=== PATIENT | female | born 1925 | race Hispanic/Latino ===

== ENCOUNTER 2016-08-13 20:29 | Emergency (ER) | payer MEDICARE, OTHER ==
[2016-08-13 20:30] VITALS: BMI 21.4
[2016-08-13 20:52] VITALS: BP 156/63; PULSE 70; RESP 18; TEMP 98.3; O2SAT 97
[2016-08-13 21:59] LABS: BASO % 1.1 % (0.0-2.0); EOS % 0.9 % (0.0-4.0); HEMATOCRIT 40.9 % (34.0-47.0); LYMPH # 0.7 K/uL (1.0-4.3); LYMPH % 21.9 % (20.0-40.0); MEAN CELL VOLUME 89.7 fl (81.0-99.0); MEAN CORPUSCULAR HEMOGLOBIN 29.5 pg (27.0-31.0); MEAN CORPUSCULAR HGB CONC 32.9 g/dL (33.0-37.0); MEAN PLATELET VOLUME 9.7 fl (7.2-11.7); MONO # 0.4 K/uL (0.0-0.8); MONO % 12.5 % (0.0-10.0); NEUT % 63.6 % (50.0-75.0); NRBC % 0.1 % (0.0-0.0); RED CELL DISTRIBUTION WIDTH 14.7 % (11.5-14.5); WHITE BLOOD COUNT 3.1 K/uL (4.8-10.8)
[2016-08-13 22:00] LABS: VENOUS BLOOD GAS BASE EXCESS 5.9 mmol/L (0.0-2.0); VENOUS BLOOD GAS PCO2 57 mmHg (40-60); VENOUS BLOOD PH 7.37 (7.32-7.43)
--- NOTE | 2016-08-13 22:06 | ED PDOC ---
HPI: CCC, URI, Sore Throat Time Seen by Provider: 08/13/16 20:59 Chief Complaint (Nursing): Cough, Cold, Congestion Chief Complaint (Provider): sore throat History Per: Patient, Family History/Exam Limitations: no limitations Onset/Duration Of Symptoms: Days (2), Gradual, Persistent Associated Symptoms: Sore Throat, Cough, Sinus Drainage. denies: Fever, Chills , Sputum, Nasal Congestion, Vomiting, Diarrhea Severity: Severe Additional Complaint(s): Pt with progressively sever throat pain for 2 days. Constant. Worse if swallow and hasn't eaten all day due to pain. Taking Tylenol with minimal relief. +sick contacts at home: family members also with URIs. Past Medical History Reviewed: Historical Data, Nursing Documentation, Vital Signs Vital Signs: Last Vital Signs Temp 98.3 F 08/13/16 20:49 Pulse 70 08/13/16 20:49 Resp 18 08/13/16 20:49 BP 156/63 H 08/13/16 20:49 Pulse Ox 97 08/14/16 00:29 - Medical History PMH: Anxiety, Back Problems, Depression, Fractures, Osteoporosis Denies: Arthritis, CHF, COPD, HTN, Hypercholesterolemia, Hypothyroidism, Chronic Kidney Disease, Rheumatoid Arthritis - Surgical History Other surgeries: LEFT shoulder - Family History Family History: States: Unknown Family Hx - Social History Current smoker - smoking cessation education provided: No - Home Medications Home Medications: Ambulatory Orders Medication Instructions Recorded Perphenazine/Amitriptyline 1 tab PO DAILY 09/30/15 Gabapentin [Neurontin] 100 mg PO TID 10/14/15 Albuterol 0.5% [Albuterol 0.5% 2.5 mg IH Q4 #15 neb 03/24/16 Inhal Regi (2.5 mg/0.5 ml) UD] Amoxicillin 500 mg PO BID #14 tablet 03/24/16 Mask, Face [Nebulizer Aerosol Mask 1 dev XX PRN PRN #1 dev 03/24/16 Pediatric] Nebulizer [Aeroeclipse II] 1 each MC DAILY #1 each 03/24/16 fentaNYL 50 mcg/hr [Duragesic 1 patch TD Q72H 03/24/16 Patch 50 mcg/hr] predniSONE [predniSONE Tab] 20 mg PO BID #8 tab 03/24/16 Amoxicillin/Clavulanate [Augmentin 1 tab PO BID #14 tab 08/14/16 875 MG-125 MG] Ibuprofen [Motrin Tab] 600 mg PO Q8 PRN #30 tab 08/14/16 - Allergies Allergies/Adverse Reactions: Allergies Allergy/AdvReac Type Severity Reaction Status Date / Time No Known Allergies Allergy Verified 12/20/15 12:59 Review of Systems ROS Statement: Except As Marked, All Systems Reviewed And Found Negative (and as per HPI) Constitutional: Negative for: Fever, Chills ENT: Positive for: Nose Discharge, Throat Pain. Negative for: Nose Congestion, Throat Swelling Cardiovascular: Negative for: Chest Pain Respiratory: Negative for: Sputum Physical Exam - Reviewed Nursing Documentation Reviewed: Yes Vital Signs Reviewed: Yes - Physical Exam Appears: Positive for: Non-toxic, Uncomfortable, In Acute Distress Head Exam: Positive for: ATRAUMATIC, NORMOCEPHALIC Skin: Positive for: Warm, Dry Eye Exam: Positive for: EOMI, PERRL ENT: Positive for: Pharynx Is (clear), Pharyngeal Erythema. Negative for: Tonsillar Exudate, Tonsillar Swelling Neck: Positive for: Painless ROM, Supple Cardiovascular/Chest: Positive for: Regular Rate, Rhythm, Chest Non Tender. Negative for: Murmur Respiratory: Positive for: Normal Breath Sounds. Negative for: Rales, Rhonchi, Wheezing Gastrointestinal/Abdominal: Positive for: Bowel Sounds, Soft. Negative for: Tenderness, Distended, Guarding Back: Positive for: Normal Inspection. Negative for: Muscle Spasm Extremity: Positive for: Normal ROM, Pedal Edema (reported as chronic) Lymphatic: Negative for: Adenopathy Neurologic/Psych: Positive for: Alert. Negative for: Motor/Sensory Deficits - Laboratory Results Result Diagrams: 08/13/16 21:49 08/13/16 21:49 - ECG O2 Sat by Pulse Oximetry: 97 - Progress ED Course And Treament: EXAM: CT Neck With Intravenous Contrast CLINICAL HISTORY: 89 years old, female; Pain; Throat pain; Additional info: Severe throat pain difficulty swallowing R/O absce TECHNIQUE: Axial computed tomography images of the neck with intravenous contrast. This CT exam was performed using one or more of the following dose reduction techniques: automated exposure control, adjustment of the mA and/or kV according to patient size, and/or use of iterative reconstruction technique. Coronal and sagittal reformatted images were created and reviewed. CONTRAST: 90 mL of [id number] administered intravenously. EXAM DATE/TIME: 08/13/2016 9:24 PM COMPARISON: No relevant prior studies available. FINDINGS: Left shoulder prosthesis. Tonsillar edema without abscess formation. The airway is patent. A normal epiglottis is identified. No abnormalities of the esophagus identified however evaluation is limited on this exam. Scarring/atelectasis in the lung apices. Degenerative changes in the cervical spine. The cervical vertebrae are well aligned and the vertebral body height is well-maintained. Disposition - Clinical Impression Clinical Impression: Pharyngitis Counseled Patient/Family Regarding: Studies Performed, Diagnosis, Need For Followup, Rx Given - Disposition Referrals: Reji Bustos MD [Family Provider] - 08/14/16 Disposition: Routine/Home Disposition Time: 00:30 Condition: STABLE Prescriptions: Amoxicillin/Clavulanate [Augmentin 875 MG-125 MG] 1 tab PO BID #14 tab Ibuprofen [Motrin Tab] 600 mg PO Q8 PRN #30 tab PRN Reason: Pain, Moderate (4-7) Instructions: Pharyngitis (ED)
[2016-08-13 22:10] LABS: ALB/GLOB RATIO 1.3 (1.0-2.1); ALKALINE PHOSPHATASE 85 U/L (38-126); ALT/SGPT 23 U/L (9-52); AST/SGOT 22 U/L (14-36); BILIRUBIN,TOTAL 0.6 mg/dl (0.2-1.3); BLOOD UREA NITROGEN 20 mg/dl (7-17); CARBON DIOXIDE 29 mmol/L (22-30); CHLORIDE 99 mmol/L (98-107); GFR AFRICAN-AMERICAN > 60; GLUCOSE,RANDOM 98 mg/dL (65-105); POTASSIUM 4.4 MMOL/L (3.6-5.0); SODIUM 136 mmol/l (132-148); TOTAL PROTEIN 6.6 G/DL (6.3-8.2)
[2016-08-13] MEDS ORDERED: Sodium Chloride 0.9% 50 ML IV ONE (23:16)
[2016-08-13] MEDS ORDERED: Iohexol 300 100 ML IJ ONE (23:16)
--- NOTE | 2016-08-14 00:21 | CT ---
EXAM: CT Neck With Intravenous Contrast CLINICAL HISTORY: 89 years old, female; Pain; Throat pain; Additional info: Severe throat pain difficulty swallowing R/O absce TECHNIQUE: Axial computed tomography images of the neck with intravenous contrast. This CT exam was performed using one or more of the following dose reduction techniques: automated exposure control, adjustment of the mA and/or kV according to patient size, and/or use of iterative reconstruction technique. Coronal and sagittal reformatted images were created and reviewed. CONTRAST: 90 mL of [id number] administered intravenously. EXAM DATE/TIME: 08/13/2016 9:24 PM COMPARISON: No relevant prior studies available. FINDINGS: Left shoulder prosthesis. Tonsillar edema without abscess formation. The airway is patent. A normal epiglottis is identified. No abnormalities of the esophagus identified however evaluation is limited on this exam. Scarring/atelectasis in the lung apices. Degenerative changes in the cervical spine. The cervical vertebrae are well aligned and the vertebral body height is well-maintained. No vascular occlusion. IMPRESSION: Mild tonsillar edema.
--- NOTE | 2016-08-14 10:05 | RAD ---
HISTORY: cough COMPARISON: 03/24/2016 TECHNIQUE: Chest PA and lateral FINDINGS: LUNGS: Hazy opacity in the right paratracheal region has remained essentially unchanged. PLEURA: Possible small right-sided pleural effusion. Biapical pleural parenchymal thickening noted. CARDIOVASCULAR: Enlarged cardiomediastinal silhouette. OSSEOUS STRUCTURES: The osseous structures demonstrate degenerative changes. Saturated thoracic kyphosis. Left shoulder replacement. Extensive degenerative changes involving the right shoulder. VISUALIZED UPPER ABDOMEN: Upper abdomen is suboptimally evaluated. OTHER FINDINGS: None. IMPRESSION: Findings as above.
--- NOTE | 2016-08-17 09:34 | CARD ---
APPROVED REPORT EKG Measurement Heart [id number] <Conclusion> Normal sinus rhythm Normal ECG
== END 2016-08-14 07:20 | disposition home or self-care (01) ==
LOC: H.ER 20:29
DX: J02.9 Acute pharyngitis, unspecified (principal); R05 Cough; R07.0 Pain in throat; F32.9 Major depressive disorder, single episode, unspecified; F41.9 Anxiety disorder, unspecified; M81.0 Age-related osteoporosis without current pathological fracture; R13.10 Dysphagia, unspecified
CPT/HCPCS: 70491; 71020; 80053; 82803; 85025; 87040; 87070; 87430; 96374; 99281; J1885; Q9967

== ENCOUNTER 2016-08-31 10:45 | Observation (INO) | payer MEDICARE ==
[2016-08-31 10:50] VITALS: BMI 19.7
--- NOTE | 2016-08-31 12:15 | US ---
PROCEDURE: Right lower extremity venous duplex Doppler. HISTORY: leg pain COMPARISON: None available. TECHNIQUE: Common femoral, superficial femoral, popliteal and posterior tibial veins were evaluated. Flow was assessed with color Doppler, compressibility, assessment of phasic flow and augmentation response. FINDINGS: COMMON FEMORAL VEIN: Unremarkable. SUPERFICIAL FEMORAL VEIN: Unremarkable. POPLITEAL VEIN: Unremarkable. POSTERIOR TIBIAL VEIN: Unremarkable. OTHER FINDINGS: None. IMPRESSION: No evidence of deep venous thrombosis in the right lower extremity.
--- NOTE | 2016-08-31 12:37 | ED PDOC ---
HPI: General Adult Time Seen by Provider: 08/31/16 11:30 Chief Complaint (Nursing): Back Pain Chief Complaint (Provider): BACK PAIN History Per: Patient, Family (89 Y/O FEMALE H/O VERTEBRAL FX WITH BACK PAIN X 2 YEARS S/P FALL AT THAT TIME HERE WITH PERSISTENT PAIN AND SCIATICA RIGHT LEG. PATIENT IS ON FENTANYL PATCH AND HAS BEEN GIVEN ALLEVE TWICE A DAY X 1 WEEK WITHOUT RELIEF. FAMILY SPOKE WITH DR. MORENO AND WAS SENT TO ED FOR EVALUATION.) Past Medical History Reviewed: Historical Data, Nursing Documentation, Vital Signs Vital Signs: Last Vital Signs Temp 98.2 F 09/01/16 16:13 Pulse 73 09/01/16 16:13 Resp 20 09/01/16 16:13 BP 138/68 09/01/16 16:13 Pulse Ox 94 L 09/01/16 16:13 - Medical History PMH: Anxiety, Back Problems, Depression, Fractures, Osteoporosis Denies: Arthritis, CHF, COPD, HTN, Hypercholesterolemia, Hypothyroidism, Chronic Kidney Disease, Rheumatoid Arthritis - Family History Family History: States: Unknown Family Hx - Home Medications Home Medications: Ambulatory Orders Medication Instructions Recorded Perphenazine/Amitriptyline 1 tab PO DAILY 09/30/15 Gabapentin [Neurontin] 100 mg PO TID 10/14/15 fentaNYL 50 mcg/hr [Duragesic 1 patch TD Q72H 03/24/16 Patch 50 mcg/hr] Ibuprofen [Motrin Tab] 600 mg PO Q8 PRN #30 tab 08/14/16 Gabapentin [Neurontin] 200 mg PO BID cap 09/01/16 Ibuprofen [Motrin Tab] 600 mg PO Q8 PRN tab 09/01/16 oxyCODONE/Acetaminophen [Percocet 1 tab PO Q4 PRN tab 09/01/16 5/325 mg Tab] - Allergies Allergies/Adverse Reactions: Allergies Allergy/AdvReac Type Severity Reaction Status Date / Time No Known Allergies Allergy Verified 08/31/16 11:01 Review of Systems ROS Statement: Except As Marked, All Systems Reviewed And Found Negative Musculoskeletal: Positive for: Back Pain, Leg Pain Physical Exam - Reviewed Nursing Documentation Reviewed: Yes Vital Signs Reviewed: Yes - Physical Exam Appears: Positive for: Well, Non-toxic, No Acute Distress Head Exam: Positive for: ATRAUMATIC, NORMAL INSPECTION, NORMOCEPHALIC Skin: Positive for: Normal Color, Warm, DRY Eye Exam: Positive for: EOMI, Normal appearance, PERRL ENT: Positive for: Normal ENT Inspection Neck: Positive for: Normal, Painless ROM Cardiovascular/Chest: Positive for: Regular Rate, Rhythm Respiratory: Positive for: CNT, Normal Breath Sounds Gastrointestinal/Abdominal: Positive for: Normal Exam, Bowel Sounds, Soft Back: Positive for: Normal Inspection, Other (MINIMAL PARALUMBAR TENDERNESS) Extremity: Positive for: Normal ROM, Tenderness (RIGHT CALF TENDERNESS/ PAIN WITH LIFTING LEG.) Neurologic/Psych: Positive for: Alert, Oriented - Laboratory Results Result Diagrams: 08/31/16 13:08 08/31/16 13:08 - ECG O2 Sat by Pulse Oximetry: 96 - Progress ED Course And Treament: D/W DR. MORENO. WILL CONSULT PAIN MANAGEMENT. WILL XRY L SPINE FOR EVALUATION OF NEW FX. DUPLEX RIGHT LEG: NEG FOR DVT D/W DR. WALSH. XRY OF L/S: PENDING RADIOLOGY REVIEW. Disposition - Clinical Impression Clinical Impression: Back pain, Chronic back pain, Intractable back pain - Patient ED Disposition Is Patient to be Admitted: Yes - Disposition Disposition Time: 12:21 Condition: STABLE - Pt Status Changed To: Hospital Disposition Of: Observation
--- NOTE | 2016-08-31 13:22 | CP.PCM.CON ---
History of Present Illness - History of Present Illness History of Present Illness: 89 yo woman w/ acute on chronic lower back pain is admitted for intractable pain. Patient had L1, L2 kyphoplasty in 10/27 for compression fracture. She had pain in the right lower back that was effectively treated with the procedure. Her pain has mostly been controlled on Duragesic and Neurontin until recently. She denies any trauma or falls this time, but developed increased lower back pain along with new onset right leg radiating pain. She denies incontinence or saddle anesthesia or pain in the other leg. At home, she denies significant side effects to Duragesic 50mcg and Neurontin 100mg q8h. She takes Aleve as well. This particular regimen hasn't been working since the start of the new pain. Past Patient History - Past Medical History & Family History Past Medical History?: Yes - Past Social History Smoking Status: Never Smoked - CARDIAC Hx Congestive Heart Failure: No Hx Hypercholesterolemia: No Hx Hypertension: No - PULMONARY Hx Chronic Obstructive Pulmonary Disease (COPD): No - NEUROLOGICAL Hx Neurological Disorder: No HX Cerebrovascular Accident: No - HEENT Other/Comment: Uses reading eyeglasses - RENAL Hx Chronic Kidney Disease: No - ENDOCRINE/METABOLIC Hx Hypothyroidism: No - HEMATOLOGICAL/ONCOLOGICAL Hx Blood Disorders: No - INTEGUMENTARY Hx Dermatological Problems: No - MUSCULOSKELETAL/RHEUMATOLOGICAL Hx Arthritis: No Hx Fractures: Yes Hx Osteoporosis: Yes Hx Rheumatoid Arthritis: No - GASTROINTESTINAL Hx Gastrointestinal Disorders: No - GENITOURINARY/GYNECOLOGICAL Hx Genitourinary Disorders: No - PSYCHIATRIC Hx Anxiety: Yes Hx Depression: Yes - SURGICAL HISTORY Hx Hysterectomy: Yes - ANESTHESIA Hx Anesthesia: No Hx Anesthesia Reactions: No Hx Malignant Hyperthermia: No Meds Allergies/Adverse Reactions: Allergies Allergy/AdvReac Type Severity Reaction Status Date / Time No Known Allergies Allergy Verified 08/31/16 11:01 Physical Exam - Back Exam Back exam: paraspinal tenderness, vertebral tenderness - Neurological Exam Additional comments: Positive straight leg raise on the right. Results - Vital Signs Recent Vital Signs: Last Vital Signs Temp 98 F 08/31/16 11:01 Pulse 74 08/31/16 11:01 Resp 16 08/31/16 11:01 BP 150/68 08/31/16 11:01 Pulse Ox 96 08/31/16 12:39 Assessment & Plan (1) Chronic back pain Assessment and Plan: 89 w/ old compression fracture, and lumbar spondylosis. She has new pain, etiology of which is unclear. - continue Duragesic 50mcg/hr - increase Neurontin 100mg q8h to 200mg q12h - lumbar MRI to look for new pathologies explaining current pain - trial of Percocet PRN for breakthrough pain Status: Acute
[2016-08-31] MEDS ORDERED: Oxycodone/Acetaminophen 5/325 mg Tab PO PRN (13:27)
[2016-08-31 13:45] LABS: BASO % 0.7 % (0.0-2.0); EOS # 0.1 K/uL (0.0-0.7); EOS % 1.1 % (0.0-4.0); HEMATOCRIT 38.3 % (34.0-47.0); LYMPH # 1.1 K/uL (1.0-4.3); LYMPH % 14.5 % (20.0-40.0); MEAN CELL VOLUME 90.1 fl (81.0-99.0); MEAN CORPUSCULAR HEMOGLOBIN 29.7 pg (27.0-31.0); MEAN CORPUSCULAR HGB CONC 32.9 g/dL (33.0-37.0); MONO # 0.4 K/uL (0.0-0.8); MONO % 5.5 % (0.0-10.0); NEUT # 5.9 K/uL (1.8-7.0); NEUT % 78.2 % (50.0-75.0); NRBC % 0.1 % (0.0-0.0); RED CELL DISTRIBUTION WIDTH 14.5 % (11.5-14.5); WHITE BLOOD COUNT 7.5 K/uL (4.8-10.8)
[2016-08-31 13:54] LABS: ALB/GLOB RATIO 1.2 (1.0-2.1); ALKALINE PHOSPHATASE 89 U/L (38-126); ALT/SGPT 32 U/L (9-52); AST/SGOT 19 U/L (14-36); BILIRUBIN,TOTAL 0.8 mg/dl (0.2-1.3); BLOOD UREA NITROGEN 18 mg/dl (7-17); CALCIUM 9.1 mg/dL (8.4-10.2); CARBON DIOXIDE 29 mmol/L (22-30); CHLORIDE 103 mmol/L (98-107); GFR AFRICAN-AMERICAN > 60; GLUCOSE,RANDOM 86 mg/dL (65-105); POTASSIUM 4.2 MMOL/L (3.6-5.0); SODIUM 140 mmol/l (132-148); TOTAL PROTEIN 6.6 G/DL (6.3-8.2)
[2016-08-31 13:57] LABS: PARTIAL THROMBOPLASTIN TIME 29.3 Seconds (25.6-37.1)
--- NOTE | 2016-08-31 14:50 | MRI ---
PROCEDURE: MR LUMBAR SPINE WITHOUT CONTRAST HISTORY: Compression fracture COMPARISON: Plain radiographs from 08/31/[address] scan of the lumbar spine from 09/30/2015 TECHNIQUE: Multiecho multiplanar sequences were performed through the lumbar spine without the use of intravenous contrast. FINDINGS: There is mild degenerative retrolisthesis of L4 on L5. Lumbar lordosis is maintained. There is an acute superior endplate compression fracture in the L5 vertebral body with associated bone marrow edema/contusion an approximately 30 percent loss of vertebral height. There is no retropulsion. There is also an acute compression fracture in the mid L3 vertebral body with approximately 10 percent loss of central vertebral height and associated bone marrow edema/contusion. No retropulsion. There are old osteoporotic compression fractures in the L1 and L2 vertebral body with postsurgical changes of kyphoplasty. There is also old osteoporotic compression fracture in the T12 vertebral body and posttraumatic fusion of the T11 and T12 vertebral bodies Bone marrow signal is heterogeneous. The conus medullaris terminates at a normal level. The nerve roots of cauda equina are normal. T12-L1: No disc herniation, spinal canal stenosis or neural foraminal narrowing. L1-2: No disc herniation, spinal canal stenosis or neural foraminal narrowing. L2-3: Mild posterior disc bulge without central spinal canal stenosis. Mild bilateral facet arthropathy contributes to moderate neural foraminal stenosis. L3-4: Posterior disc bulge, mild ligamentum flavum infolding and mild bilateral facet arthropathy result in moderate bilateral neural foraminal stenosis. L4-5: Diffuse posterior disc bulge and mild ligamentum flavum infolding without neural foraminal stenosis. Mild bilateral facet arthropathy contributes to severe neural foraminal stenosis. L5-S1: Posterior disc bulge and mild bilateral facet arthropathy result in mild bilateral neural foraminal stenosis. No central spinal canal stenosis. OTHER FINDINGS: The paraspinous soft tissues are normal. There is a large simple cyst in the left kidney. There is a parapelvic cyst and cortical cysts in the right kidney. IMPRESSION: 1. Acute superior endplate compression fracture in the L5 vertebral body with approximately 30 percent loss of vertebral height without retropulsion. 2. Acute compression deformity in the mid L3 vertebral body with approximately 10 percent loss of central vertebral height and associated bone marrow edema/contusion without retropulsion. 3. Mild multilevel degenerative disc disease with variable degree of moderate to severe neural foraminal stenosis. No central spinal canal stenosis. 4. Old osteoporotic compression fractures at T12, L1 and L2.
--- NOTE | 2016-08-31 16:15 | RAD ---
PROCEDURE: Radiographs of the Lumbar Spine. HISTORY: Back pain COMPARISON: 11/03/2015. FINDINGS: BONES: There is an acute compression fracture in the L3 vertebral body. There is also compression deformity in the L5 vertebral body. There are old fractures in the T12, L1 and L2 vertebral bodies with kyphoplasty at L1 and L2. There is diffuse bone demineralization. DISC SPACES: The disc heights are preserved. OTHER FINDINGS: None. IMPRESSION: Acute osteoporotic compression fractures in the L3 and L5 vertebral bodies.
--- NOTE | 2016-08-31 17:36 | CP.PCM.HP ---
History of Present Illness - History of Present Illness History of Present Illness: 89 yo lady with x of osteoporosis vertebral fx and severe back pain. She is on several medications for the pain for the past week poor poorly respond to pain therapy and she presented in ER with severe untraceable pain. Present on Admission - Present on Admission Any Indicators Present on Admission: No Review of Systems - Constitutional Constitutional: As Per HPI - EENT Eyes: As Per HPI - Cardiovascular Cardiovascular: As Per HPI - Respiratory Respiratory: As Per HPI - Gastrointestinal Gastrointestinal: As Per HPI - Musculoskeletal Musculoskeletal: As Per HPI - Integumentary Integumentary: As Per HPI Past Patient History - Past Medical History & Family History Past Medical History?: Yes - Past Social History Smoking Status: Never Smoked - CARDIAC Hx Cardiac Disorders: No Hx Congestive Heart Failure: No Hx Hypercholesterolemia: No Hx Hypertension: No - PULMONARY Hx Respiratory Disorders: No Hx Chronic Obstructive Pulmonary Disease (COPD): No - NEUROLOGICAL Hx Neurological Disorder: No - HEENT Hx HEENT Problems: No - RENAL Hx Chronic Kidney Disease: No - ENDOCRINE/METABOLIC Hx Endocrine Disorders: No Hx Hypothyroidism: No - HEMATOLOGICAL/ONCOLOGICAL Hx Blood Disorders: No - INTEGUMENTARY Hx Dermatological Problems: No - MUSCULOSKELETAL/RHEUMATOLOGICAL Hx Musculoskeletal Disorders: Yes Hx Arthritis: No Hx Back Pain: Yes Hx Falls: Yes Hx Fractures: Yes Hx Osteoporosis: Yes Hx Rheumatoid Arthritis: No - GASTROINTESTINAL Hx Gastrointestinal Disorders: No - GENITOURINARY/GYNECOLOGICAL Hx Genitourinary Disorders: No - PSYCHIATRIC Hx Psychophysiologic Disorder: Yes Hx Anxiety: Yes Hx Depression: Yes Hx Substance Use: No - SURGICAL HISTORY Hx Surgeries: Yes Hx Hysterectomy: Yes Hx Orthopedic Surgery: Yes (left shoulder sx) Other/Comment: kyphoplasty sx for L1L2 fx 10/27 - ANESTHESIA Hx Anesthesia: No Hx Anesthesia Reactions: No Hx Malignant Hyperthermia: No Meds Allergies/Adverse Reactions: Allergies Allergy/AdvReac Type Severity Reaction Status Date / Time No Known Allergies Allergy Verified 08/31/16 11:01 Physical Exam - Constitutional Appears: In Acute Distress, Chronically Ill - Head Exam Head Exam: ATRAUMATIC, NORMAL INSPECTION, NORMOCEPHALIC - Eye Exam Eye Exam: Normal appearance - ENT Exam ENT Exam: Mucous Membranes Moist - Neck Exam Neck exam: Positive for: Full Rom - Respiratory Exam Respiratory Exam: Clear to Auscultation Bilateral Additional comments: Severe tenderness in the thoracic and lumbar spine. - Cardiovascular Exam Cardiovascular Exam: REGULAR RHYTHM, +S1, +S2 - GI/Abdominal Exam GI & Abdominal Exam: Normal Bowel Sounds - Extremities Exam Extremities exam: Positive for: normal inspection - Neurological Exam Neurological exam: Alert, CN II-XII Intact, Oriented x3 - Psychiatric Exam Psychiatric exam: Anxious Results - Vital Signs Recent Vital Signs: Last Vital Signs Temp 98.3 F 08/31/16 16:31 Pulse 67 08/31/16 16:31 Resp 20 08/31/16 16:31 BP 128/73 08/31/16 16:31 Pulse Ox 93 L 08/31/16 16:31 - Labs Result Diagrams: 08/31/16 13:08 08/31/16 13:08 Labs: Laboratory Results - last 24 hr 08/31/16 08/31/16 08/31/16 13:08 13:08 13:08 WBC 7.5 D RBC 4.25 Hgb 12.6 Hct 38.3 MCV 90.1 MCH 29.7 MCHC 32.9 L RDW 14.5 Plt Count 184 MPV 10.0 Neut % (Auto) 78.2 H Lymph % (Auto) 14.5 L Slope % (Auto) 5.5 Eos % (Auto) 1.1 Baso % (Auto) 0.7 Neut # 5.9 Lymph # 1.1 Slope # 0.4 Eos # 0.1 Baso # 0.0 PT 11.8 INR 1.0 APTT 29.3 Sodium 140 Potassium 4.2 Chloride 103 Carbon Dioxide 29 Anion Gap 12 BUN 18 H Creatinine 0.7 Est GFR ( Amer) > 60 Est GFR (Non-Af Amer) > 60 Random Glucose 86 Calcium 9.1 Total Bilirubin 0.8 AST 19 ALT 32 Alkaline Phosphatase 89 Total Protein 6.6 Albumin 3.6 Globulin 3.0 Albumin/Globulin Ratio 1.2 Assessment & Plan (1) Vertebral fracture, osteoporotic Status: Acute (2) Back pain Status: Acute (3) Chronic back pain Status: Acute (4) Intractable back pain Status: Acute (5) Osteoporosis Status: Chronic - Assessment and Plan (Free Text) Plan: Will follow anesthesia and IR consult.
[2016-09-01 07:44] VITALS: TEMP 98.2
[2016-09-01] MEDS ORDERED: PERPHENAZINE PO SCH (09:00)
[2016-09-01] MEDS ORDERED: Enoxaparin 40 mg Syringe SC SCH (09:00)
[2016-09-01] MEDS ORDERED: AMITRIPTYLINE PO SCH (09:00)
--- NOTE | 2016-09-01 09:29 | CP.PCM.PN ---
Subjective - Date & Time of Evaluation Date of Evaluation: 09/01/16 Time of Evaluation: 09:15 - Subjective Subjective: 89 yo woman w/ acute on chronic pain. New MRI revealed an acute L5 compression fracture with 30% loss of height. Patient is s/p L1 + L2 kyphoplasty last year with IR. Current regimen is moderately helping with pain, but she has yet to get out of bed to ambulate. Objective - Vital Signs/Intake and Output Vital Signs (last 24 hours): Temp Pulse Resp BP Pulse Ox 98.2 F 74 18 151/76 H 95 09/01/16 07:44 09/01/16 07:44 09/01/16 07:44 09/01/16 07:44 09/01/16 07:44 - Medications Medications: Current Medications Enoxaparin Sodium (Lovenox) 40 mg SC DAILY [facility] PRN Reason: Protocol Last Admin: 09/01/16 08:55 Dose: 40 mg Fentanyl (Duragesic) 1 patch TD Q3D [facility] PRN Reason: Protocol Last Admin: 08/31/16 14:00 Dose: Not Given Fentanyl (Duragesic) 1 patch TD Q72H [facility] PRN Reason: Protocol Last Admin: 08/31/16 15:59 Dose: 1 patch Gabapentin (Neurontin) 200 mg PO BID [facility] Last Admin: 09/01/16 08:55 Dose: 200 mg Home Med (Perphenazine/Amitriptyline) 1 tab PO DAILY [facility] Last Admin: 09/01/16 08:55 Dose: 1 tab Ibuprofen (Motrin Tab) 600 mg PO Q8 PRN PRN Reason: Pain, moderate (4-7) Oxycodone/Acetaminophen (Percocet 5/325 Mg Tab) 1 tab PO Q4 PRN PRN Reason: Pain, severe (8-10) Stop: 09/03/16 13:28 Last Admin: 09/01/16 00:01 Dose: 1 tab - Labs Labs: 08/31/16 13:08 08/31/16 13:08 PT 11.8 Seconds (9.8-13.1) 08/31/16 13:08 INR 1.0 (0.9-1.2) 08/31/16 13:08 APTT 29.3 Seconds (25.6-37.1) 08/31/16 13:08 - Back Exam Back Exam: paraspinal tenderness, vertebral tenderness Assessment and Plan (1) Chronic back pain Assessment & Plan: 89 yo woman w/ new L5 compression fraction. New MRI didn't point to other pathologies that could explain the new right radiculopathy. I have discussed the case with IR. - continue current regimen - consult IR for possible L5 kyphoplasty - please obtain clearance for general anesthesia for kyphoplasty Status: Acute
--- NOTE | 2016-09-01 10:29 | RAD ---
PROCEDURE: CHEST RADIOGRAPH, 1 VIEW HISTORY: pro-op COMPARISON: 08/13/2016 FINDINGS: LUNGS: Shallow inspiration. Biapical (right greater than left pleural thickening. The interstitial lung markings and the pulmonary vasculature appears chronically mildly prominent. No interval infiltrate or interval masses noted. The right paratracheal soft tissue fullness without tracheal deviation probably relates to tortuous. Brachiocephalic vessels its appearance is similar. Clear. PLEURA: As above. No pneumothorax. No interval pleural effusion CARDIOVASCULAR: Cardiomegaly the markedly tortuous/ unfolded thoracic aorta OSSEOUS STRUCTURES: Thoracic spondylosis and left shoulder arthroplasty VISUALIZED UPPER ABDOMEN: Normal. OTHER FINDINGS: None. IMPRESSION: No interval pathology noted. Chronic changes as above
--- NOTE | 2016-09-01 13:49 | RAD ---
PROCEDURE: HISTORY: r/o fx COMPARISON: 06/11/2015 TECHNIQUE: AP view of the pelvis and applicable frog leg views obtained. FINDINGS: Generalized osteopenia. There is varus orientation to left hip. The left and right superolateral hip joint spaces are narrowed. No gross fracture is seen. Osteopenia limits optimal evaluation. Stool retention. Vascular calcifications over each thigh/groin Submitted views there is mild bulbous irregularity and lucency of the inferior left pubic bone the appearance is consistent with a prior fracture here with healing deformity residuum present IMPRESSION: No acute fracture or dislocation appreciated. The generalized osteopenia limits optimal evaluation. Old inferior left pubic ring fracture.
--- NOTE | 2016-09-01 15:15 | CARD ---
APPROVED REPORT EKG Measurement Heart [id number] <Conclusion> Normal sinus rhythm Normal ECG
[2016-09-01 16:13] VITALS: BP 138/68; PULSE 73; RESP 20
--- NOTE | 2016-09-01 18:12 | CP.PCM.PN ---
Subjective - Date & Time of Evaluation Date of Evaluation: 09/01/16 Time of Evaluation: 18:11 - Subjective Subjective: Patient not candidate for intervention at this time. More comfortable no hip fx. Objective - Vital Signs/Intake and Output Vital Signs (last 24 hours): Temp Pulse Resp BP Pulse Ox 98.2 F 73 20 138/68 94 L 09/01/16 16:13 09/01/16 16:13 09/01/16 16:13 09/01/16 16:13 09/01/16 16:13 - Medications Medications: Current Medications Enoxaparin Sodium (Lovenox) 40 mg SC DAILY [facility] PRN Reason: Protocol Last Admin: 09/01/16 08:55 Dose: 40 mg Fentanyl (Duragesic) 1 patch TD Q3D [facility] PRN Reason: Protocol Last Admin: 08/31/16 14:00 Dose: Not Given Fentanyl (Duragesic) 1 patch TD Q72H [facility] PRN Reason: Protocol Last Admin: 08/31/16 15:59 Dose: 1 patch Gabapentin (Neurontin) 200 mg PO BID [facility] Last Admin: 09/01/16 16:52 Dose: 200 mg Home Med (Perphenazine/Amitriptyline) 1 tab PO DAILY [facility] Last Admin: 09/01/16 08:55 Dose: 1 tab Ibuprofen (Motrin Tab) 600 mg PO Q8 PRN PRN Reason: Pain, moderate (4-7) Oxycodone/Acetaminophen (Percocet 5/325 Mg Tab) 1 tab PO Q4 PRN PRN Reason: Pain, severe (8-10) Stop: 09/03/16 13:28 Last Admin: 09/01/16 00:01 Dose: 1 tab - Labs Labs: 08/31/16 13:08 08/31/16 13:08 PT 11.8 Seconds (9.8-13.1) 08/31/16 13:08 INR 1.0 (0.9-1.2) 08/31/16 13:08 APTT 29.3 Seconds (25.6-37.1) 08/31/16 13:08 - Constitutional Appears: Chronically Ill - Head Exam Head Exam: NORMAL INSPECTION - Eye Exam Eye Exam: Normal appearance - ENT Exam ENT Exam: Mucous Membranes Moist - Neck Exam Neck Exam: Full ROM - Respiratory Exam Respiratory Exam: Clear to Ausculation Bilateral - Cardiovascular Exam Cardiovascular Exam: REGULAR RHYTHM, +S1, +S2 - GI/Abdominal Exam GI & Abdominal Exam: Normal Bowel Sounds - Extremities Exam Extremities Exam: Normal Inspection - Back Exam Back Exam: paraspinal tenderness - Neurological Exam Neurological Exam: Alert, Awake, CN II-XII Intact, Oriented x3 - Psychiatric Exam Psychiatric exam: Normal Affect Assessment and Plan (1) Vertebral fracture, osteoporotic Status: Acute (2) Back pain Status: Acute (3) Chronic back pain Status: Acute (4) Intractable back pain Status: Acute (5) Osteoporosis Status: Chronic - Assessment and Plan (Free Text) Plan: Will dc home on present rx.
[2016-09-03 05:45] VITALS: O2SAT 96
== END 2016-09-01 19:29 | disposition home or self-care (01) ==
LOC: H.ER 10:45 → H.ERHOLD 12:21 → H.MEDSURG1 15:31
PROVIDERS: ADMIT Internal Medicine; ATTEND Internal Medicine
DX: M47.816 Spondylosis without myelopathy or radiculopathy, lumbar region (principal); M80.08XA Age-related osteoporosis with current pathological fracture, vertebra(e), initial encounter for fracture; G89.29 Other chronic pain; F32.9 Major depressive disorder, single episode, unspecified; F41.9 Anxiety disorder, unspecified; M54.5 Low back pain
CPT/HCPCS: 71010; 72100; 72148; 73502; 80053; 85025; 85610; 85730; 93005; 93971; 96372; 99284; G0378; J1650